=== PATIENT | male | born 1945 ===

== ENCOUNTER 2017-11-20 10:44 | Day surgery (SDC) | payer MEDICARE ==
[2017-11-20] MEDS ORDERED: Propofol 10 mg/ml Inj (20 ML) ONE (13:42)
[2017-11-20 14:13] VITALS: BMI 26.6
[2017-11-20] MEDS ORDERED: Gentamicin 160 MG in Sodium Chloride 0.9% 100 ML IVPB ONE (14:13)
[2017-11-20] MEDS ORDERED: Ciprofloxacin 400mg/200ml D5W 400 MG/200 ML BAG IVPB ONE (14:18)
[2017-11-20] MEDS ORDERED: Bupivacaine 0.25% 20 ML INJ IJ ONE (14:44)
[2017-11-20] MEDS ORDERED: Bacitracin 500 Units/gm Oint Foilpak UD ONE (14:46)
[2017-11-20] MEDS ORDERED: HYDROmorphone 0.5 mg/0.5 ml ISec IVP PRN (14:56)
--- NOTE | 2017-11-20 15:12 | PCM.SURG1 ---
Surgeon's Initial Post Op Note - Surgeon's Notes Surgeon: [employer]: MIGUEL Type of Anesthesia: General Endo Anesthesia Administered By: Staff Pre-Operative Diagnosis: Scrotal gangrene/wound dehisence Operative Findings: necrotic skin/wound dehisence Post-Operative Diagnosis: same Operation Performed: Debridmont of scrotal Gangrene/secondary closure of wound Specimen/Specimens Removed: Gangrenous tissue Estimated Blood Loss: EBL {In ML}: 0 Blood Products Given: N/A Drains Used: No Drains Post-Op Condition: Good Date of Surgery/Procedure: 11/20/17 Time of Surgery/Procedure: 15:12
[2017-11-20 16:39] VITALS: BP 155/98; PULSE 72; RESP 15; TEMP 97.2
[2017-11-20 16:55] VITALS: O2SAT 100
--- NOTE | 2017-11-21 08:02 | OP ---
PROCEDURE DATE: 11/20/2017 PREOPERATIVE DIAGNOSIS: Gangrene of the scrotal skin and superficial wound dehiscence. POSTOPERATIVE DIAGNOSIS: Gangrene of the scrotal skin and superficial wound dehiscence. PROCEDURE: Debridement of gangrenous scrotal skin and secondary closure of scrotal wound. DESCRIPTION OF PROCEDURE: The patient was draped and prepped in usual manner. The open wound was scrubbed extensively with a scrub brush. There were gangrenous necrotic ends which were debrided down to normal scrotal tissue. These were sent for pathological analysis. After irrigation of the wound, the wound was closed with 3-0 chromic suture in a discontinuous fashion, several larger 3-0 Dexon sutures were used as stay sutures. The patient tolerated the procedure well and was sent to the recovery room in good condition after a dry sterile dressing and Bacitracin ointment was placed on the skin. Mekhi Coleman MD
== END 2017-11-20 17:04 | disposition home or self-care (01) ==
LOC: C.SDS 10:44
PROVIDERS: ATTEND Urology
DX: T81.31XA Disruption of external operation (surgical) wound, not elsewhere classified, initial encounter (principal); I96 Gangrene, not elsewhere classified
CPT/HCPCS: 12020; 87070; 88305; J0744; J1170; J1580; J2001; J2704; J2765; J3010